=== PATIENT | female | born 1975 | race Caucasian/White ===

== ENCOUNTER → 2022-02-20 | Outpatient (CLI) | payer BC ==
--- NOTE | 2022-02-21 12:31 | Diagnostic Imaging Report ---
3-D bilateral screening mammogram with CAD. This is the patient's baseline study. At this time there are no current complaints. The fibroglandular tissue in both breasts is heterogeneously dense. This does limit the sensitivity of this exam. There is no primary or secondary sign of malignancy noted. The tomographic images were also unremarkable for a malignant process. Impression: 1. There is no evidence for malignancy. 2. The patient should have her annual bilateral screening mammogram on schedule in February 2023. ACR BI-RADS Category 1: Negative. Result letter will be mailed to the patient. Note: At least 10% of breast cancer is not imaged by mammography. Dictated by: Dictated on workstation # [id number]
== END ==
LOC: RAD 14:25
PROVIDERS: ATTEND Nurse Practitioner Family
DX: Z12.31 Encounter for screening mammogram for malignant neoplasm of breast (principal)
CPT/HCPCS: 77063; 77067

== ENCOUNTER → 2022-12-26 | Outpatient (CLI) | payer BC, SELFPAY ==
--- NOTE | 2022-12-26 13:27 | Diagnostic Imaging Report ---
Indication: Family history of heart disease, coronary artery screening CT coronary artery study performed with noncontrast images of the heart followed by calculation of cardiac calcium score. Dose reduction protocol was used. Visualized portions of the mediastinum were unremarkable. There is no pleural fluid. Visualized portions of the lung cervantes were clear. There is no significant coronary artery calcification. Coronary calcium score was 0 in all territories. IMPRESSION: Cardiac calcium score was 0, no significant coronary artery plaquing. Dictated by: Dictated on workstation # [id number]
== END ==
LOC: RAD 07:41
PROVIDERS: ATTEND Nurse Practitioner Family
DX: R53.83 Other fatigue (principal); Z82.49 Family history of ischemic heart disease and other diseases of the circulatory system
CPT/HCPCS: 75571